=== PATIENT | male | born 1945 | race Caucasian/White ===

== ENCOUNTER → 2019-06-22 07:00 | Outpatient (CLI) | payer MEDICARE, SELFPAY ==
--- NOTE | 2019-07-06 16:08 | PM.PFT.1 ---
Pulmonary Function Test Referral & Results Date Patient Seen: 06/22/19 Requesting provider: Jules Kramer Results: The spirometry demonstrates an FVC of 3.44 L which is 101% of predicted. The FEV1 was measured at 2.02 L which is 78% of predicted. The FEV1/FVC ratio was 59 which is 78% of predicted. Following the administration of bronchodilator there was a 17% improvement in FEV1 and a 90% improvement in FEF 25-75%. Lung volumes show an SVC of 3.58 L which is 110% of predicted. The diffusing capacity was measured at 34.06 which is 109% of predicted. The maximum voluntary ventilation was normal Interpretation: This study demonstrates either normal pulmonary function or perhaps very mild obstructive lung disease based on slight reduction FEV1 and slight improvement in FEV1 and FEF 25-75% following bronchodilator as well as the curve of the flow volume loop.
== END ==
PROVIDERS: PCP Family Medicine; Visit Provider Family Medicine
DX: R05 Cough (principal)
CPT/HCPCS: 94060; 94726; 94729

== ENCOUNTER → 2021-10-19 08:20 | Outpatient (CLI) | payer MEDICARE, SELFPAY | PROVIDERS: Visit Provider Nurse Practitioner Family | DX: R30.0 Dysuria (principal) | CPT/HCPCS: 87077; 87086; 87186 ==

== ENCOUNTER → 2022-05-03 13:10 | Outpatient (CLI) | payer MEDICARE, SELFPAY ==
[2022-05-03 14:52] LABS: Influenza A - CEPHEID Flu A NEGATIVE (NEGATIVE); Influenza B - CEPHEID Flu B NEGATIVE (NEGATIVE); Respiratory Syncytial Virus Negative (Negative)
[2022-05-03 15:22] LABS: COVID-19 CEPHEID 4-PLEX PCR Negative (Negative)
== END ==
PROVIDERS: PCP Family Medicine; Visit Provider Physician Assistant Medical
DX: R05.1 Acute cough (principal); R06.2 Wheezing
CPT/HCPCS: 0241U

== ENCOUNTER → 2023-07-05 16:50 | Outpatient (CLI) | payer MEDICARE, SELFPAY ==
[2023-07-05 18:29] LABS: Alanine Aminotransferase 14 IU/L (<50); Albumin 4.1 g/dL (3.5-5.0); Albumin Globulin Ratio 1.4 (1.0-2.8); Alkaline Phosphatase 67 U/L (38-126); Aspartate Aminotransferase 20 IU/L (17-59); BUN Creatinine Ratio 27.6 (6-22); Bilirubin Total 0.4 mg/dL (0.2-1.3); Blood Urea Nitrogen 21 mg/dL (9-20); Calcium 9.2 mg/dL (8.4-10.2); Carbon Dioxide 30 mmol/L (22-32); Chloride 101 mmol/L (98-107); Estimated Glomerular Filt Rate > 60 mL/min (>60); Glucose 115 mg/dL (80-110); HEMOLYSIS < 15 (0-50); Sodium 136 mmol/L (137-145); Total Protein 7.1 g/dL (6.3-8.2)
== END ==
PROVIDERS: PCP Family Medicine; Referring Provider Registered Nurse; Visit Provider Registered Nurse
DX: U07.1 COVID-19 (principal)
CPT/HCPCS: 36415; 80053